=== PATIENT | male | born 1965 | race Caucasian/White ===

== ENCOUNTER 2018-05-13 08:20 | Emergency (ER) | payer MEDICARE, OTHER ==
[2018-05-13 09:22] LABS: Basophils % (Auto) 0.7 % (0.0-1.8); Eosinophils # (Auto) 0.3 K/mm3 (0.0-0.4); Eosinophils % (Auto) 5.2 % (0.0-4.3); Hematocrit 41.8 % (35.5-45.6); Hemoglobin 14.1 gm/dl (11.8-15.2); Lymphocytes # (Auto) 1.8 K/mm3 (1.2-5.4); Lymphocytes % (Auto) 30.1 % (13.4-35.0); Mean Corpuscular HGB Conc 34 % (32-34); Mean Corpuscular Hemoglobin 28 pg (28-32); Mean Corpuscular Volume 84 fl (84-94); Monocytes # (Auto) 0.6 K/mm3 (0.0-0.8); Monocytes % (Auto) 9.5 % (0.0-7.3); Platelet Count 234 K/mm3 (140-440); Red Cell Distribution Width 14.5 % (13.2-15.2)
[2018-05-13 09:35] LABS: BUN/Creatinine Ratio 15; Blood Urea Nitrogen 12 mg/dL (9-20); Calcium 9.4 mg/dL (8.4-10.2); Hemolysis Index 6
[2018-05-13 09:41] LABS: INR 1.1 (0.87-1.13); Partial Thromboplastin Time 27.5 Sec. (24.2-36.6)
[2018-05-13] MEDS ORDERED: TORADOL IM ONE (11:30)
--- NOTE | 2018-05-13 11:39 | Emergency Department Report ---
ED Chest Pain HPI - General Chief Complaint: Chest Pain Stated Complaint: CHEST PAIN Time Seen by Provider: 05/13/18 11:22 Source: patient, old records reviewed (no previous [facility] records) Mode of arrival: Ambulatory Limitations: No Limitations - History of Present Illness Initial Comments: 52-year-old male with a past medical history of GERD, chronic back pain, and elevated cholesterol presents to the hospital complaining of intermittent upper chest pain for the last 2 months. Patient is unable to characterize pain. There is some exacerbation with movement and palpation. Pain worse in the upper right side of the chest. Pain radiates down both arms on occasion. He says he's had some mild shortness of breath at night but no dyspnea on exertion , nausea, vomiting, diaphoresis, calf tenderness, or leg edema. Patient travels back and forth to [place] monthly and is scheduled to leave in the next day or so. Patient has a history of smoking in the past but is currently. His dad early 80s and possibly had CAD and history. Severity scale (0 -10): 5 - Related Data Previous Rx's Medication Instructions Recorded Last Taken Type Ibuprofen [Motrin] 800 mg PO Q8HR PRN #30 tablet 05/13/18 Unknown Rx Allergies Allergy/AdvReac Type Severity Reaction Status Date / Time No Known Allergies Allergy Verified 05/13/18 08:54 Heart Score - HEART Score History: Slightly suspicious EKG: Normal Age: 45-65 Risk factors: 1-2 risk factors Troponin: < normal limit HEART Score: 2 ED Review of Systems ROS: Stated complaint: CHEST PAIN Other details as noted in HPI Comment: All other systems reviewed and negative ED Past Medical Hx - Past Medical History Previous Medical History?: Yes Hx GERD: Yes Additional medical history: chronic lower back pain. high cholesterol - Surgical History Past Surgical History?: Yes Additional Surgical History: lower back sx - Social History Smoking Status: Former Smoker Substance Use Type: None - Medications Home Medications: Home Medications Medication Instructions Recorded Confirmed Last Taken Type Ibuprofen [Motrin] 800 mg PO Q8HR PRN #30 tablet 05/13/18 Unknown Rx ED Physical Exam - General Limitations: No Limitations - Other Other exam information: General: No limitations, patient is alert in no acute distress Head exam: Atraumatic, normocephalic Eyes exam: Normal appearance ENT: Moist mucous membrane, normal oropharynx Neck exam: Normal inspection, full range of motion, no meningismus nontender Respiratory exam: Clear to auscultation bilateral, no wheezes, rales, crackles Cardiovascular: Normal rate and rhythm, right upper and left upper chest wall tenderness to palpation Abdomen: Soft, nondistended, and nontender, with normal bowel sounds, no rebound, or guarding Extremity: Full range of motion normal inspection no deformity, no calf tenderness or edema Back: Normal Inspection, full range of motion, no tenderness Neurologic: Alert, oriented x3, cranial nerves intact, no motor or sensory deficit Psychiatric: normal affect, normal mood Skin: Warm, dry, intact ED Course Vital Signs 05/13/18 05/13/18 08:55 12:47 Temperature 98.6 F Pulse Rate 59 L Respiratory 20 18 Rate Blood Pressure 139/75 O2 Sat by Pulse 99 Oximetry ED Medical Decision Making - Lab Data Result diagrams: 05/13/18 09:04 05/13/18 09:04 Lab Results 05/13/18 05/13/18 05/13/18 Range/Units 09:04 09:04 09:04 WBC 5.8 (4.5-11.0) K/mm3 RBC 5.00 (3.65-5.03) M/mm3 Hgb 14.1 (11.8-15.2) gm/dl Hct 41.8 (35.5-45.6) % MCV 84 (84-94) fl MCH 28 (28-32) pg MCHC 34 (32-34) % RDW 14.5 (13.2-15.2) % Plt Count 234 (140-440) K/mm3 Lymph % (Auto) 30.1 (13.4-35.0) % [place] % (Auto) 9.5 H (0.0-7.3) % Eos % (Auto) 5.2 H (0.0-4.3) % Baso % (Auto) 0.7 (0.0-1.8) % Lymph # 1.8 (1.2-5.4) K/mm3 [place] # 0.6 (0.0-0.8) K/mm3 Eos # 0.3 (0.0-0.4) K/mm3 Baso # 0.0 (0.0-0.1) K/mm3 Seg Neutrophils % 54.5 (40.0-70.0) % Seg Neutrophils # 3.2 (1.8-7.7) K/mm3 PT 14.7 (12.2-14.9) Sec. INR 1.10 (0.87-1.13) APTT 27.5 (24.2-36.6) Sec. D-Dimer (0-234) ng/mlDDU Sodium 139 (137-145) mmol/L Potassium 4.0 (3.6-5.0) mmol/L Chloride 101.6 (98-107) mmol/L Carbon Dioxide 27 (22-30) mmol/L Anion Gap 14 mmol/L BUN 12 (9-20) mg/dL Creatinine 0.8 (0.8-1.5) mg/dL Estimated GFR > 60 ml/min BUN/Creatinine Ratio 15 % Glucose 92 (75-100) mg/dL Calcium 9.4 (8.4-10.2) mg/dL Troponin T < 0.010 (0.00-0.029) ng/mL 05/13/18 05/13/18 Range/Units 09:04 12:32 WBC (4.5-11.0) K/mm3 RBC (3.65-5.03) M/mm3 Hgb (11.8-15.2) gm/dl Hct (35.5-45.6) % MCV (84-94) fl MCH (28-32) pg MCHC (32-34) % RDW (13.2-15.2) % Plt Count (140-440) K/mm3 Lymph % (Auto) (13.4-35.0) % [place] % (Auto) (0.0-7.3) % Eos % (Auto) (0.0-4.3) % Baso % (Auto) (0.0-1.8) % Lymph # (1.2-5.4) K/mm3 [place] # (0.0-0.8) K/mm3 Eos # (0.0-0.4) K/mm3 Baso # (0.0-0.1) K/mm3 Seg Neutrophils % (40.0-70.0) % Seg Neutrophils # (1.8-7.7) K/mm3 PT (12.2-14.9) Sec. INR (0.87-1.13) APTT (24.2-36.6) Sec. D-Dimer < 135 (0-234) ng/mlDDU Sodium (137-145) mmol/L Potassium (3.6-5.0) mmol/L Chloride (98-107) mmol/L Carbon Dioxide (22-30) mmol/L Anion Gap mmol/L BUN (9-20) mg/dL Creatinine (0.8-1.5) mg/dL Estimated GFR ml/min BUN/Creatinine Ratio % Glucose (75-100) mg/dL Calcium (8.4-10.2) mg/dL Troponin T < 0.010 (0.00-0.029) ng/mL - EKG Data -: EKG Interpreted by Me EKG shows normal: sinus rhythm, axis (qrs 55), intervals (pr interval prolonged 212), QRS complexes (qrsd 84), ST-T waves (no stemi/t inv) Rate: bradycardia (57) - EKG Data When compared to previous EKG there are: previous EKG unavailable 05/13/18 12:51 repeat ekg unchanged. [place] interval 214 - Radiology Data Radiology results: report reviewed CHEST 2 VIEWS INDICATION: Chest pain. COMPARISON: None similar at this institution. FINDINGS: PA and lateral chest radiographs demonstrate top normal heart size. Normal mediastinal and hilar contours. Clear lungs. Probable cholecystectomy clips. Slight thoracic spine degenerative spurring. CONCLUSION: No acute chest process, as described. Thank you for the opportunity to participate in this patient's care. - Medical Decision Making Patient present with atypical chest pain ongoing for 2 weeks. Pain is in the upper bilateral chest and has a reproducible component without significant associated symptoms. EKG is without signs of ischemia and unchanged upon repeat. Patient has 2 negative troponins and a negative d-dimer without signs of DVT and low pretest probability for PE/DVT. Patient received Toradol in the ED would be discharged with symptomatic treatment for musculoskeletal pain. Outpatient follow-up with PMD will be encouraged. - Differential Diagnosis ND, PE, costochondritis, MS K pain, atypical chest pain Critical Care Time: No Critical care attestation.: If time is entered above; I have spent that time in minutes in the direct care of this critically ill patient, excluding procedure time. ED Disposition Clinical Impression: Chest pain, atypical Disposition: DC-01 TO HOME OR SELFCARE Is pt being admited?: No Does the pt Need Aspirin: No Condition: Stable Instructions: Chest Pain (ED) Additional Instructions: Take the medication as prescribed. Follow up with your doctor or the doctor/ clinic provided. Return if symptoms worsen as indicated by your discharge instructions Prescriptions: Ibuprofen [Motrin] 800 mg PO Q8HR PRN #30 tablet PRN Reason: Pain, Moderate (4-6) Referrals: PRIMARY CARE, [Primary Care Provider] - 3-5 Days [facility] [Provider Group] - 3-5 Days JOSE A HOOKER MD [Staff Physician] - 3-5 Days Time of Disposition: 13:42
--- NOTE | 2018-05-13 11:49 | XRay Report ---
CHEST 2 VIEWS INDICATION: Chest pain. COMPARISON: None similar at this institution. FINDINGS: PA and lateral chest radiographs demonstrate top normal heart size. Normal mediastinal and hilar contours. Clear lungs. Probable cholecystectomy clips. Slight thoracic spine degenerative spurring. CONCLUSION: No acute chest process, as described. Thank you for the opportunity to participate in this patient's care.
[2018-05-13 13:56] VITALS: BP 128/73
== END 2018-05-13 13:56 | disposition home or self-care (01) ==
LOC: ED 08:20
DX: R07.89 Other chest pain (principal); K21.9 Gastro-esophageal reflux disease without esophagitis; G89.29 Other chronic pain; E78.00 Pure hypercholesterolemia, unspecified; Z87.891 Personal history of nicotine dependence
CPT/HCPCS: 36415; 71046; 80048; 84484; 85025; 85379; 85610; 85730; 93005; 93010; 96372; 99284; J1885

== ENCOUNTER 2018-05-13 12:05 | Outpatient (CLI) | payer MEDICARE, OTHER ==
--- NOTE | 2018-05-13 13:55 | XRay Report ---
RIGHT HAND RADIOGRAPHS INDICATION: Right wrist pain. COMPARISON: None similar at this institution. FINDINGS: AP, lateral and oblique right hand radiographs demonstrate normal bones, joints and soft tissues. CONCLUSION: No acute right hand radiographic abnormality. Thank you for the opportunity to participate in this patient's care.
== END 2018-05-13 12:06 | disposition home or self-care (01) ==
LOC: MERGE 12:05 → XRAY 12:05
PROVIDERS: ATTEND Internal Medicine
DX: M25.531 Pain in right wrist (principal)